=== PATIENT | male | born 1980 | race Caucasian/White ===

== ENCOUNTER 2017-02-16 11:05 | Emergency (ER) | payer OTHER ==
--- NOTE | 2017-02-16 11:52 | ERNOTE ---
Medical Problem HPI - Narrative Date of Service: 02/16/17 - General Chief Complaint: Laceration Time Seen by Provider: 02/16/17 11:33 Source: patient, RN notes reviewed Exam Limitations: no limitations - Immun/Allergies/Home Medications Immunizations: IMMUNIZATION HX Immunizations Up to Date Yes History of Influenza Vaccine No Hx Pneumococcal Vaccination No Allergies/Adverse Reactions: Allergies amoxicillin [Amoxicillin] Adverse Reaction (Mild, Verified 02/16/17 11:17) RASH Home Medications: HOME MEDICATIONS NK [No Home Medication] 11/04/13 [Last Taken Unknown] - History of Present History Narrative: Rommel is a 36 year old male ambulatory to the ED for a laceration to his left hand. 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 This happened just [employer] when he cut himself with his saw. He is right handed. He denies needing any pain medication on initial exam. He reports having a tetanus vaccination in the past 2 years. Review of Systems - Review of Systems Constitutional: Absent: recent illness, fever, malaise EYE: Present: no symptoms reported ENT: Present: no symptoms reported Respiratory: Present: no symptoms reported Cardiology: Absent: chest pain, syncope Gastrointestinal/Abdominal: Absent: nausea, vomiting Genitourinary: Present: no symptoms reported Musculoskeletal: Absent: joint pain, joint swelling Skin: Absent: rash, lesions, change in color Neurological: Absent: weakness, numbness, tingling Endocrine: Present: no symptoms reported Hematologic/Lymphatic: Absent: easy bruising, easy bleeding Psych: Present: no symptoms reported - Patient's Past Medical History Patient History - Medical: No pertinent hx Patient History - Cardiac/Respiratory: No pertinent hx Patient History - Cancer: No Hx of Cancer Patient History - Surgical Procedures: Noncontributory, Other Patient History - Other: None - Social History Living Situations: spouse Abuse History: No History of abuse Psych History: No pertinent hx Smoking Status: Current every day smoker Have you smoked in the past 12 months: Yes Do you dip or chew tobacco: Yes Alcohol Use: none Drug Use: none - Immunizations Immunizations Up to Date: Yes Hx Pneumococcal Vaccination: No History of Influenza Vaccine: No Physical Exam - Physical Exam General Appearance: Present: wd/wn, alert, no apparent distress Respiratory: Present: no respiratory distress, no accessory muscle use Cardiovascular/Chest: Present: normal peripheral pulses Peripheral Pulses: N=norm/S=strong/W=weak/B=bound/A=absent: Dorsalis-pedis (R): Strong, Dorsalis-pedis (L): Strong Extremity Exam: Present: normal except - - laceration to dorsal left hand, normal range of motion. Absent: bony tenderness, joint redness, joint swelling , extremity edema Neurological Exam: Present: alert, oriented, normal mood/affect, no motor/ sensory deficits Skin Exam: Present: normal color, warm/dry ED Progress - Vital Signs Patient's Vital Signs:: I have reviewed the patient's vital signs. Vital Signs: Vital Signs 02/16/17 11:12 Temperature 37.0 C Pulse Rate 89 Respiratory 15 Rate Blood Pressure 148/84 O2 Sat by Pulse 98 Oximetry - X-Ray X-Ray #1 X-Ray: hand Interpretation: Reviewed by me X-ray Comments: TECHNIQUE: 3 views of the left hand. COMPARISONS: Previous study of the left thumb from 11/04/2013 Hand Minimum 3 Views LT * No definable fracture lucency or cortical discontinuity. Likely an old mild fracture deformity of the first distal phalanx. Joint spaces are in gross normal alignment without subluxation or dislocation. There is a punctate radiodense foreign body projecting in between the second and third metacarpal diaphyses, stable. IMPRESSION: No acute fracture or new radiopaque foreign body. Stable punctate foreign body as discussed above. Electronically signed by Joseph Che M.D.. - Progress/Reassessment Chief Complaint: Laceration Progress:: Improved Procedures Left Dorsal Hand Anesthesia: Lidocaine w/ Epi Length of Repair/Wound (cm): 6.5 Wound's Depth/Shape: into subcutaneous, irregular Wound Explored: clean, to base, in bloodless field, no foreign body Wound Intervention: irrigated w/saline, margins revised Distal NVT: neuro/vasc intact, no tendon injury Wound Repaired With: sutures Suture Size/Type: 4-0, nylon Number of Sutures: 11 Layer Closure: Simple Wound Dressing: sterile dressing applied, splint applied Complications: Pt ean procedure well Departure - Departure Clinical Impression: Laceration of hand Qualifiers: Encounter type: initial encounter Foreign body presence: without foreign body Laterality: left Qualified Code(s): S61.412A - Laceration without foreign body of left hand, initial encounter Disposition: Home Follow Up Needed Condition: Good Instructions: Sutured Wound Care, [id number] Additional Instructions: See occupational health instruction sheet Follow up in occupational health for suture removal as scheduled Referrals: Neela Landrum FNP [[facility]] - 02/23/17 9:00 am
--- OUTSIDE RECORDS SUMMARY | 2017-02-16 11:57 | XMS REPORT | Continuity of Care Document ---
:1980 Author Organization [facility] ([facility]) Address [address] [place] [address] Phone [phone] Care Team Providers Name Role Phone Armin Crane Primary Care Provider [phone] Source Comments This disclosure is being made pursuant to the Care Everywhere program, applicable federal and state laws, and may not contain all informaitonavailable regarding this patient.[facility] ([facility]) Active Allergies and Adverse Reactions Not on File Current Medications Not on file Active Problems Not on file Social History Tobacco Use Types Packs/Day Years Used Date Never Assessed Plan of Care Health Maintenance Due Date Last Done Comments Hepatitis B Vaccine (1 of 3 - Primary Series) 1980 Tdap Vaccine 1993 Lipid Disorder Screening 2000 MMR Vaccine 2000 Td Vaccine 2000 Varicella Vaccine (1 of 2 - Adult - No Evidence of 2000 Immunity) Influenza Vaccine: Seasonal (#1) 05/26/2016 Results from Last 3 Months Not on file
[2017-02-16] MEDS ORDERED: LIDOCAINE HCL/EPINEPHRINE 30 ML VIAL IJ ONE (12:01)
[2017-02-16 14:02] VITALS: BP 137/76
== END 2017-02-16 13:05 | disposition home or self-care (01) ==
LOC: ER 11:05
PROC: 0JQK0ZZ Repair Left Hand Subcutaneous Tissue and Fascia, Open Approach (ICD-10-PCS; principal; 2017-02-16)
DX: S61.412A Laceration without foreign body of left hand, initial encounter (principal); F17.210 Nicotine dependence, cigarettes, uncomplicated; W27.8XXA Contact with other nonpowered hand tool, initial encounter; Y93.89 Activity, other specified; Y92.89 Other specified places as the place of occurrence of the external cause; Y99.0 Civilian activity done for income or pay